=== PATIENT | male | born 1930 | race Caucasian/White ===

== ENCOUNTER → 2017-06-24 | Day surgery (SDC) | payer MEDICARE ==
[~2017-06-24] VITALS: Ht 167.6 cm; Wt 77.0 kg
[~2017-06-24] MED LIST: ACETAMINOPHEN 325 MG TAB PO PRN; ALPR.25 PO; ASPI81CH CHEW; BACT800T5 PO; CARV3.12 PO; CHLORHEXIDINE GLUCONATE 2 % 1 PACK (2 CLOTHS) TOPICAL PRN; CITRTAB7 PO; CYMB60CA PO; DO NOT ADM ANY ANTICOAGULANT DRUGS PRN; FLOR250C PO; FLUC200T2 PO; GABA100C4 PO; GABA300C5 PO; INSULIN HUMAN REGULAR 1,000 UNITS/10 ML VIAL SQ PRN; IPRASOL INH; LACTATED RINGER'S 1000 ML IV PRN; LIDOCAINE HCL 1% PF 5 ML AMPULE OTHER ONE; LORA-373 PO; MAGN400T2 PO; METOPROLOL TARTRATE 25 MG TAB PO PRN; MIDAZOLAM HCL 2 MG/2 ML VIAL IV ONE; MIRA50TA PO; MORPHINE SULFATE 2 MG/ML INJ IV PRN; MULT-267 PO; OFLOXACIN 0.3% OPTH SOLN 5 ML BTL EACH EAR SCH; OFLOXACIN 0.3% OPTH SOLN 5 ML BTL ONE; ONDANSETRON HCL 4 MG/2 ML VIAL IV PRN; PERC10TA27 PO; PHENYLEPH/NS 1000 MCG/10 ML SYR IV ONE; POVIDONE IODINE 5% (ANTISEPSIS KIT) 4 APPLICATIONS EACH NARE PRN; PRAS10TA PO; PROPOFOL 200 MG/20 ML AMP IV ONE; ROPI2TAB23 PO; SODIUM CHLORID 0.9% 500 ML IV PRN; STOO100C PO; SYMB80AE INH; TRAZ50TA12 PO; VITA100064 PO; ZOCO10TA PO
[2017-06-24 10:30] LABS: BASOPHIL % 0.3 % (0.0-2.0); EOSINOPHIL # 0.2 TH/MM3 (0-0.4); EOSINOPHIL % 2.8 % (0.0-4.0); HEMATOCRIT 35.5 % (39.0-51.0); HEMO FLAGS DIFF FINAL; LYMPH % 22.6 % (9.0-44.0); LYMPHOCYTE # 1.8 TH/MM3 (1.0-4.8); MEAN CELL VOLUME 88.5 FL (80.0-100.0); MEAN CORPUSCULAR HEMOGLOBIN 29.7 PG (27.0-34.0); MEAN CORPUSCULAR HGB CONC 33.5 % (32.0-36.0); MONO % 9.9 % (0.0-8.0); NEUT % 64.4 % (16.0-70.0); PLATELET COUNT 172 TH/MM3 (150-450); RED BLOOD COUNT 4.01 MIL/MM3 (4.50-5.90); WHITE BLOOD COUNT 7.8 TH/MM3 (4.0-11.0)
--- NOTE | 2017-06-24 12:57 | MP ---
cc: MAHOGANY BUCHANAN DATE OF SURGERY: 06/24/2017 DATE OF : 1930 INDICATIONS This patient has a history of eustachian tube dysfunction. He is to be treated with hyperbaric oxygen for a case of osteomyelitis and was not able to do the dives due to ear pressure. He was brought to the operating room for myringotomy and tubes so that he may complete his dives and unable to complete this under local anesthesia. PREOPERATIVE DIAGNOSIS Eustachian tube dysfunction with need for hyperbaric oxygen. POSTOPERATIVE DIAGNOSIS Eustachian tube dysfunction with need for hyperbaric oxygen. PROCEDURE Bilateral myringotomy and T-tubes under general anesthesia. SUMMARY The patient was brought to the operating room and placed in the supine position, successfully placed under general anesthesia and prepared in the usual fashion for this procedure. The right ear was first examined under the microscope and cleared of debris. A myringotomy incision was made anterior and inferiorly. Serous fluid was suctioned from the middle ear and a pressure equalization tube was placed without complication. Ofloxacin drops were applied. In a similar fashion on the left side the ear was cleared of debris. A myringotomy incision was made anterior and inferiorly. Serous fluid was suctioned from the middle ear. A pressure equalization tube was placed without complication. Ofloxacin drops were applied. The patient tolerated the procedure well, was awakened and taken to Recovery in stable condition. MD NEGRA De Los Santos/EYAD /12:30 PM /12:33 PM
--- NOTE | 2017-06-24 13:14 | MH ---
cc: MAHOGANY BUCHANAN DATE OF ADMISSION: 06/24/2017 1930 CHIEF COMPLAINT Chronic otitis, eustachian tube dysfunction, unable to tolerate hyperbaric treatment. SUMMARY This is an 87-year-old male who has a history of chronic infection of the left hip. He has osteomyelitis. He has been set up by infectious disease for hyperbaric oxygen but cannot do a dive. He has tried on several attempts and has failed. He shows no bleeding at the ear. He shows no mass in the nasal pharynx. Plan is to proceed with bilateral myringotomy and tubes with PE tubes. MEDICATIONS Current include 1. Bactrim 1 tablet by mouth b.i.d. 14 days 2. Effient 3. Invanz (Ertapenem)1 gram solution for 8 days 4. Oxycodone acetaminophen 10/325. 5. Simvastatin ALLERGIES No known drug allergies. PHYSICAL EXAMINATION GENERAL: Well-developed, well-nourished male in no apparent distress. HEENT: normocephalic, atraumatic. Extraocular motions intact. External canals clear. Tympanic membrane shows slight retractions. There is no fluid level. The nasal exam shows no lesion. Lips, mucosa and pharynx show no lesion. NECK: Shows no masses. CHEST: Clear to auscultation. HEART: Regular rate. ABDOMEN: Soft. EXTREMITIES: No lesions. NEUROLOGIC: Nonfocal. ASSESSMENT This is an 87-year-old male, eustachian tube dysfunction who needs to undergo hyperbaric oxygen. He did not tolerate this. The plan is for bilateral myringotomy and T-tubes under general anesthesia. The risks and benefits are discussed with the patient. The risks include but not limited to those of anesthesia, bleeding, unfavorable scarring, TM perforation, early tube extrusion, tube retention requiring removal, tube otorrhea requiring removal, cholesteatoma, perforation, hearing loss. The patient states he understands and accepts risks of procedure. MD NEGRA De Los Santos/ /4:10 PM /12:52 PM
--- NOTE | 2017-06-24 13:42 | EKG ---
Date Performed: 06/24/2017 Time Performed: 08:57:43 PTAGE: 87 years EKG: Sinus rhythm WITH OCCASIONAL SUPRAVENTRICULAR PREMATURE COMPLEXES BORDERLINE ECG NO PREVIOUS TRACING DOCTOR: Oscar Gonzalez Interpretating Date/Time 06/24/2017 13:40:02
[2017-06-24 13:49] VITALS: TEMP 98.5
[2017-06-24 14:17] VITALS: BP 136/71; PULSE 89; RESP 20; O2SAT 97
--- NOTE | 2017-06-25 09:47 | MH ---
cc: MAHOGANY BUCHANAN DATE OF ADMISSION 06/24/2017 DATE OF 1930 HISTORY This patient has a history of osteomyelitis. He is being treated for a hip wound and is requiring hyperbaric oxygen. He has not able tolerate several dives this week. He was sent to ENT evaluation that shows no fluid or bleeding at the tympanic membranes, but slight retraction. He is to undergo myringotomy and tubes so that he can complete hyperbaric oxygen. PAST MEDICAL HISTORY Negative per ENT. PHYSICAL EXAMINATION This is a well-developed male in no apparent distress. HEAD, EYES, EARS, NOSE, AND THROAT: Normocephalic, atraumatic. Extraocular motions intact. External ear canals clear. Tympanic retracted. Nasal exam shows no lesion. Lips, oral mucosa and oropharynx shows no lesion. NECK: Shows no masses. CHEST: Clear to auscultation. HEART: Regular rate. ABDOMEN: Soft. EXTREMITIES: No lesion. NEUROLOGIC: Exam nonfocal. ASSESSMENT/PLAN Patient with eustachian tube dysfunction, cannot tolerate hyperbaric oxygen dives to undergo bilateral myringotomy and tubes under general anesthesia with T-tube. The risks and benefits discussed with the patient. The risks include, but not limited to those of anesthesia, bleeding, unfavorable scarring, TM perforation, early tube extrusion, tube retention requiring removal, tube otorrhea requiring removal, early tube extrusion, hearing loss and cholesteatoma. The patient states he understands and accepts the risks of the procedure. MD NEGRA De Los Santos/JOHNATHAN /7:33 AM /9:41 AM
== END | disposition home or self-care (01) ==
LOC: HSDC 08:11
PROVIDERS: ATTEND Specialist
DX: H69.93 Unspecified Eustachian tube disorder, bilateral (principal); H66.93 Otitis media, unspecified, bilateral; I10 Essential (primary) hypertension
CPT/HCPCS: 00126; 69436; 85025; 93005; J2250; J2370; J3010; J7120